=== PATIENT | female | born 2000 | race Hispanic/Latino ===

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

== ENCOUNTER 2019-10-12 00:39 | Emergency (ER) | payer BC, OTHER ==
--- NOTE | 2019-10-15 09:22 | EKG ---
Test Reason : SYNCOPE Blood Pressure : / mmHG Vent. Rate : 066 BPM Atrial Rate : 066 BPM P-R Int : 136 ms QRS Dur : 078 ms QT Int : 382 ms P-R-T Axes : 029 051 023 degrees QTc Int : 400 ms Normal sinus rhythm with sinus arrhythmia Normal ECG Confirmed by ARNULFO METCALF ([id number]), powder press operator ELOISA TORIBIO ([id number]) on 10/15/2019 9:21:50 AM Referred By: Confirmed By:RANULFO METCALF
== END 2019-10-12 01:18 | disposition home or self-care (01) ==
LOC: ERS 00:39
DX: R55 Syncope and collapse (principal)
CPT/HCPCS: 93005